=== PATIENT | male | born 1960 | race Two or more races ===

== ENCOUNTER → 2019-08-11 | Emergency (ER) | payer OTHER ==
[~2019-08-11] MED LIST: BUPIVACAINE HCL 50 ML ONE; LIDOCAINE 1% HCL (LOCAL ANESTH.) INJ 20ML MDV ONE
== END | disposition left against medical advice (07) ==
LOC: ER 12:57
DX: M79.672 Pain in left foot (principal); Z53.21 Procedure and treatment not carried out due to patient leaving prior to being seen by health care provider